=== PATIENT | female | born 1990 | race African-American/Black ===

== ENCOUNTER 2018-11-21 05:30 | Inpatient (IN) | payer OTHER ==
[2018-11-21] MEDS ORDERED: Acetaminophen 500 MG TAB PO PRN (05:59)
[2018-11-21] MEDS ORDERED: Diphenoxylate HCl/Atropine Tablet PO PRN ×2 (05:59)
[2018-11-21] MEDS ORDERED: Misoprostol 200 MCG TAB PR PRN (05:59)
[2018-11-21] MEDS ORDERED: NS / Oxytocin 40 units/1000ml 1,000 ML IV PRN (05:59)
[2018-11-21] MEDS ORDERED: Docusate 100 MG CAP PO PRN (05:59)
[2018-11-21] MEDS ORDERED: hydrALAZINE 20 MG/ML VIAL SLOW IVP PRN ×2 (05:59→13:39)
[2018-11-21] MEDS ORDERED: Lidocaine 1% (PF) 30 ML VIAL SC PRN (05:59)
[2018-11-21] MEDS ORDERED: Ibuprofen 800 MG TAB PO PRN (05:59)
[2018-11-21] MEDS ORDERED: NS w/ Oxytocin 10 units 500 ML IV SCH ×2 (05:59)
[2018-11-21] MEDS ORDERED: Ondansetron PF 4 MG/2 ML Vial IVP PRN ×3 (05:59→13:39)
[2018-11-21] MEDS ORDERED: HYDROcodone/Acetaminophen 5/325 mg Tablet PO PRN ×2 (05:59)
[2018-11-21] MEDS ORDERED: Butorphanol Tartrate 1 MG/ML VIAL SLOW IVP PRN (05:59)
[2018-11-21] MEDS ORDERED: Promethazine HCl 25 MG/ML VIAL IM PRN ×2 (05:59→10:43)
[2018-11-21 06:27] VITALS: BMI 37.4
[2018-11-21] MEDS ORDERED: FLU VACC QS2019-20(6MOS UP)/PF 60 MCG/0.5 ML SYRINGE IM ONE (06:30)
[2018-11-21 07:21] LABS: Hemoglobin 12.3 g/dL (12.0-16.0); Mean Corpuscular HGB CONC 34.4 g/dL (32.0-36.0); Mean Corpuscular Hemoglobin 31.3 pg (27.0-31.0); Platelet Count 129 thou/uL (130-400); RBC Distribution Width 11.4 % (11.5-14.5); Red Blood Cell (RBC) Count 3.93 mill/uL (4.20-5.40); White Blood Cell (WBC) Count 5.7 thou/uL (4.8-10.8)
[2018-11-21 07:57] LABS: Syphilis Antibody Nonreactive (Nonreactive); Syphilis Antibody Index 0.07 S/CO (<1.00 Non-Reactive)
[2018-11-21 07:58] LABS: HBSAg Index 0.76 S/CO (0-0.99); Hep B Surf Ag Non-Reactive S/CO (NonReactive)
[2018-11-21] MEDS ORDERED: Fentanyl 4 mcg/Bup 0.1% Cadd 100 ML ONE (08:23)
[2018-11-21] MEDS ORDERED: Fentanyl 100 MCG/2 ML VIAL ONE (08:40)
[2018-11-21] MEDS: Lactated Ringer's 1,000 ML IV SCH ×2 (09:22→16:51)
[2018-11-21] MEDS ORDERED: Acetaminophen 325 MG TAB PO PRN (10:43)
[2018-11-21] MEDS ORDERED: ePHEDrine/0.9% NaCl/PF SYRINGE 50 mg/10 ml SLOW IVP PRN (10:43)
[2018-11-21] MEDS ORDERED: Naloxone HCl 0.4 mg/ml Vial IVP PRN ×2 (10:43)
[2018-11-21] MEDS ORDERED: Lactated Ringer's 500 ML IV PRN (10:43)
[2018-11-21] MEDS ORDERED: diphenhydrAMINE 50 MG/ML VIAL IVP PRN (10:43)
[2018-11-21] MEDS ORDERED: Communication Order-Pharmacy FS PRN (10:45)
[2018-11-21] MEDS ORDERED: Fentanyl 4 mcg/Bupivacaine 0.1% Cassette 100 ML EPIDURAL SCH (10:45)
[2018-11-21] MEDS ORDERED: Misoprostol 200 MCG TAB VAG PRN (13:39)
[2018-11-21] MEDS ORDERED: Zolpidem Tartrate 5 MG TAB PO PRN (13:39)
[2018-11-21] MEDS ORDERED: Preparation H Ointment 28 GM TUBE PR PRN (13:39)
[2018-11-21] MEDS ORDERED: Lanolin Ointment 7 GM TUBE TOP PRN (13:39)
[2018-11-21] MEDS ORDERED: diphenhydrAMINE 25 MG CAP PO PRN (13:39)
[2018-11-21] MEDS ORDERED: Benzocaine-Menthol 82.5 ML CAN TOP PRN (13:39)
[2018-11-21] MEDS ORDERED: Bisacodyl 10 MG SUPP PR PRN (13:39)
[2018-11-21] MEDS ORDERED: Adacel (T-DAP) 0.5 ML SYRINGE IM ONE (13:39)
[2018-11-21] MEDS ORDERED: Milk Of Magnesia 30 ML UDCUP PO PRN (13:39)
[2018-11-21] MEDS ORDERED: NS / Oxytocin 40 units/1000ml 1,000 ML IV SCH (13:45)
[2018-11-21] MEDS: Ibuprofen 800 MG TAB PO SCH ×2 (15:37→21:32)
[2018-11-21] MEDS ORDERED: Misoprostol 200 MCG TAB ONE (16:15)
[2018-11-21] MEDS: Acetaminophen/Codeine 30-300mg Tablet PO PRN (16:56)
[2018-11-21] MEDS: Ferrous Sulfate 325 MG TAB PO SCH (17:06)
[2018-11-21] MEDS ORDERED: Sodium Chloride 0.9% 10 ML ONE (17:51)
[2018-11-21] MEDS ORDERED: Acetaminophen 500 MG TAB PO SCH (18:00)
[2018-11-21] MEDS: Docusate Calcium (SURFAK) 240 MG CAP PO SCH (21:33)
[2018-11-22 05:24] LABS: Hemoglobin 12.2 g/dL (12.0-16.0)
[2018-11-22] MEDS: Acetaminophen/Codeine 30-300mg Tablet PO PRN ×4 (05:50→18:42)
[2018-11-22] MEDS: Ibuprofen 800 MG TAB PO SCH ×3 (05:50→21:23)
[2018-11-22] MEDS: Prenatal Vitamin 1 TAB PO SCH (07:48)
[2018-11-22] MEDS: Docusate Calcium (SURFAK) 240 MG CAP PO SCH ×2 (07:48→21:22)
[2018-11-22] MEDS: Ferrous Sulfate 325 MG TAB PO SCH ×2 (09:05→17:50)
[2018-11-22] MEDS ORDERED: FLU VACC QS2019-20(6MOS UP)/PF 60 MCG/0.5 ML SYRINGE IM ONE (17:15)
[2018-11-23] MEDS: Ibuprofen 800 MG TAB PO SCH (05:30)
[2018-11-23] MEDS: Acetaminophen/Codeine 30-300mg Tablet PO PRN ×2 (05:35→10:21)
[2018-11-23 09:03] VITALS: BP 116/67; TEMP 99
[2018-11-23] MEDS: Prenatal Vitamin 1 TAB PO SCH (09:16)
[2018-11-23] MEDS: Ferrous Sulfate 325 MG TAB PO SCH (09:16)
[2018-11-23] MEDS: Docusate Calcium (SURFAK) 240 MG CAP PO SCH (09:16)
== END 2018-11-23 12:26 | disposition home or self-care (01) | DRG 807 ==
LOC: L&D 05:58 → 3SW 16:20
PROVIDERS: ADMIT Obstetrics & Gynecology; ATTEND Obstetrics & Gynecology
PROC: 10E0XZZ Delivery of Products of Conception, External Approach (ICD-10-PCS; principal; 2018-11-21)
PROC: 3E033VJ Introduction of Other Hormone into Peripheral Vein, Percutaneous Approach (ICD-10-PCS; 2018-11-21)
PROC: 10907ZC Drainage of Amniotic Fluid, Therapeutic from Products of Conception, Via Natural or Artificial Opening (ICD-10-PCS; 2018-11-21)
DX: O80 Encounter for full-term uncomplicated delivery (principal); Z37.0 Single live birth; Z3A.39 39 weeks gestation of pregnancy
CPT/HCPCS: 36415; 85014; 85018; 85027; 86780; 86850; 86900; 86901; 87340; 90471; 90686; G0008; J2590; J3010

== ENCOUNTER 2022-10-17 08:23 | Outpatient (CLI) | payer BC | END 2022-10-17 08:24 | disposition home or self-care (01) | LOC: BICULT 08:23 | PROVIDERS: ATTEND Family Medicine | DX: O32.1XX0 Maternal care for breech presentation, not applicable or unspecified (principal); Z3A.27 27 weeks gestation of pregnancy | CPT/HCPCS: 76805 ==